=== PATIENT | female | born 1975 | race Two or more races ===

== ENCOUNTER 2024-09-07 14:47 | Emergency (ER) | payer MEDICAID, SELFPAY ==
[2024-09-07 15:33] VITALS: BP 101/66; PULSE 71; RESP 19; TEMP 36.9; O2SAT 98
--- NOTE | 2024-09-07 16:01 | XR_ITS ---
Examination: Mandible series 5 views TECHNIQUE: Adame, left lateral, right and left sagittal oblique Aubrie view total 6 views Exam date and time: September 07, 2024 1624 hours FINDINGS: Patient woke up with jaw pain beginning 2 days ago. FINDINGS: Body and symphysis of the mandible appear intact Mandibular condyles appear intact No cortical bone destruction IMPRESSION: No fracture or akosua cortical bone destruction If symptoms persist, consider follow-up CT maxillofacial without contrast study including amenable
--- NOTE | 2024-09-07 16:03 | PD.EDADULT ---
ED General RME/HPI General Chief complaint: General Adult/Misc Complain Stated complaint: LEFT JAW PAIN, PAIN TO CHEW FOOD Time Seen by Provider: 09/07/24 14:53 Arrival date/time: 09/07/24 14:47 Limitations: language barrier RME / HPI RME / HPI narrative: 48 yo F with diabetes presents for evaluation of left sided jaw pain. She reports spontaneous onset that woke her up from sleep last night. She denies tooth pain, trauma, headache, visual changes, fever, neck pain, ear pain, discharge from ears, weight loss, night sweats. Related Data Previous Rx's ?Medication ?Instructions ?Recorded ibuprofen 600 mg tablet 600 mg PO Q8H PRN fever #30 tabs 02/09/18 ibuprofen 600 mg tablet 600 mg PO TID PRN pain #14 tabs 09/07/24 Allergies Allergy/AdvReac Type Severity Reaction Status Date / Time Penicillins Allergy Mild Flushing Verified 09/07/24 14:48 PEANUT BUTTER Allergy Intermediate Anaphylaxis Uncoded 09/07/24 14:48 Review of Systems Constitutional Constitutional: Denies body ache(s), Denies fever(s), Denies headache(s) and Denies night sweats Eyes Eyes: Denies blurry vision and Denies change in vision ENT Ears, Nose, Mouth, and Throat: Denies change in voice, Denies dental pain, Denies dysphagia, Denies ear discharge, Denies otalgia, Denies facial pain, Denies headache(s), Denies mouth pain, Denies neck pain, Denies sore throat and Reports other (endorses left sided jaw pain. ) Cardiovascular Cardiovascular: Denies chest pain and Denies dyspnea Respiratory Respiratory: Denies cough, Denies dyspnea, Denies stridor and Denies wheezing Gastrointestinal Gastrointestinal: Denies abdominal pain and Denies dysphagia Musculoskeletal Musculoskeletal: Denies back pain and Denies neck pain Integumentary/Breasts Skin/Breast: Denies rash Neurologic Neurologic: Denies headache(s) Allergic/Immunologic Allergic/Immunologic: Denies wheezing Past Medical History Past Medical History CARDIAC: Negative Congestive Heart Failure RESPIRATORY: Negative Chronic Obstructive Pulmonary Disease (COPD) GENITOURINARY: Negative Renal Disease ENDOCRINE: Negative Diabetes Mellitus Type 1 or Diabetes Mellitus Type 2 Social History SMOKING STATUS: Never smoker ED Exam General Limitations: Present language barrier General appearance: Present alert and in no apparent distress Head Head exam: Present atraumatic Expanded Head Exam Head exam physical: Present other (focal tenderness to palpation right TMJ without overlying redness or warmth ); Absent tenderness of temporal artery Eye Eye exam: Present normal appearance and EOMI ENT ENT exam: Present mucous membranes moist and TM's normal bilaterally Expanded ENT Exam External ear exam: Absent mastoid tenderness Mouth exam: Present tongue normal; Absent drooling, trismus or lip swelling Teeth exam: Present normal inspection and other (edentoulous multiple molars left side) Throat exam: Absent tonsillomegaly, tonsillar exudate, R peritonsillar mass, L peritonsillar mass or muffled voice Neck Neck exam: Present normal inspection and full ROM; Absent meningismus Chest Chest inspection: Present normal inspection and symmetric chest wall rise Respiratory Respiratory exam: Present normal lung sounds bilaterally; Absent respiratory distress or wheezes Cardiovascular Cardiovascular exam: Present regular rate, +S1 and +S2 Abdominal Exam Abdominal exam: Present soft; Absent distention Extremities Exam Extremities exam: Present normal inspection and full ROM Neurological Exam Neurological exam: Present alert and normal gait Psychiatric Psychiatric exam: Present normal affect Skin Skin exam: Present warm and dry Course Quality Measures none Orders Category Date Time Status XR mandible <4V Stat Exams 09/07/24 16:01 Completed Ketorolac Inj [Toradol Inj] Med 09/07/24 16:01 Discontinued 30 mg IM X1 ONE Vital Signs Vital signs: Vital Signs Temperature 98.5 F 09/07/24 15:33 Pulse Rate 71 09/07/24 15:33 Respiratory Rate 19 09/07/24 15:33 Blood Pressure 101/66 09/07/24 15:33 Pulse Oximetry (%) 98 09/07/24 15:33 Oxygen Delivery Method Room Air 09/07/24 15:33 Pulse ox 98% on room air, within normal limits. [facility] Patient data External records reviewed:: [facility] previous records Clinical information provided by:: patient Social determinants that could affect healthcare access:: none Patient has the following chronic illnesses:: None reported. How is presenting disease/condition affected by chronic disease/condition?: no chronic disease Evaluation data The following diagnostics were reviewed and interpreted by me:: radiology exam(s) Lab and/or radiology exams considered but not ordered:: CT mandible without contrast considered not ordered. Interpretation Summary: CT mandible without acute fracture or dislocation. Medications Medications considered but not ordered:: Rx given. Medication administrations:: Medication Administration History Discontinued Medications Ketorolac Tromethamine (Ketorolac Inj 60 Mg/2 Ml Vial) 30 mg IM X1 ONE Stop: 09/07/24 16:02 Last Admin: 09/07/24 16:28 Dose: 30 mg Documented By: ERNESTINE Rx given. Consultations Consultation(s) initiated? (list below): No Diagnosis Differential Diagnosis ED Complaint MDM: TMJ, temporal arteritis, gingival abscess, mandibular dysfunction, mandibul Most likely diagnosis given after review of the tests above:: Mandibular dysfunction (TMJ pain) Admission Indicated Admission indicated?: not indicated Explain why admission is indicated or not indicated:: Patient is stable without gross abnormality on mandibular x-ray today. Vital signs reassuring. Appropriate for outpatient follow-up with primary care. Admission Request Was there a request for admission?: No Disposition Plan Disposition Plan: Discharge Discharge Attestation Discharge Attestation: The patient and all family members were given an opportunity to ask questions and understood the discharge instructions. Discharge instructions specifically effects, indications for sooner follow up or return to the emergency department, and the expected course of current diagnosis. Patient condition: Stable Medical Decision Making MDM Narrative MDM Narrative: 48-year-old female presents for evaluation of left jaw pain x 2 days. Vital signs reassuring. No temporal tenderness to palpation therefore low concern for temporal arteritis and CRP was not ordered today. No evidence of gingival abscess on examination. Patient without stridor, not drooling, patent airway with no evidence of peritonsillar abscess therefore CT neck was deferred at this time. Mandibular x-ray today was negative for fracture, dislocation, and lytic lesions. More likely TMJ dysfunction. Patient reported that her left jaw pain was improved following Toradol IM. Ultimately she was discharged with plan to follow-up with primary care within the week for reevaluation. She was given strict return precautions and opportunity to ask questions. Patient stable at time of discharge. Differential Diagnosis Differential Diagnosis: TMJ, temporal arteritis, gingival abscess, mandibular dysfunction, mandibul Discharge Plan Plan Patient Disposition: HOME (Self Care) Disposition Comment: stable Prescriptions/Referrals Prescriptions/Med Rec: New ibuprofen 600 mg tablet 600 mg PO TID PRN (Reason: pain) Qty: 14 0RF No Action ibuprofen 600 mg tablet 600 mg PO Q8H PRN (Reason: fever) Qty: 30 0RF Referrals: Easton Mccartney MD [Primary Care Provider] - In 1 week Problem List Clinical Impression: TMJ dysfunction, Mandibular pain Patient/Caregiver Discharge Instructions Other Activity Instructions:: Take ibuprofen or Tylenol as needed for jaw pain. Follow-up with dentist within the next week. Return to the ED if you develop fever, neck pain, headache, visual changes. Education Materials: ED TMJ Syndrome Print Language: [place] Stand Alone Forms: [place] Award Info., Patient Portal Info Letter MD Attestation MD Attestation The patient was seen by the midlevel practitioner. I, the co-signing physician, was present during the entire ER visit. While I did not physically examine the patient, I was available for consultation as needed.
[2024-09-07] MEDS: KETOROLAC INJ 60 MG/2 ML VIAL 30 MG IM (16:28)
== END 2024-09-07 18:23 | disposition home or self-care (01) ==
PROVIDERS: Emergency Provider Emergency Medicine; PCP Family Medicine
DX: M26.601 Right temporomandibular joint disorder, unspecified (principal)
CPT/HCPCS: 70100; 96372; 99283; J1885